=== PATIENT | male | born 1940 | race Asian ===

== ENCOUNTER 2018-12-03 02:00 | Inpatient (IN) | payer MEDICARE ==
[~2018-12-03] VITALS: Ht 165.1 cm; Wt 61.3 kg
[~2018-12-03 02:00] MED LIST: ALLO100T30 PO; AMLO10TA4 PO; CETI10TA18 PO; FINA5TAB4 PO; LATA2.5D3 EACHEYE; LOSA100T14 PO; MELO15TA6 PO; OMEP-110 PO; TIZA2CAP PO
[2018-12-03] MEDS ORDERED: PIPERACILLIN/TAZO/PMX 3.375GM 50 ML IVPB ONE (02:30)
[2018-12-03] MEDS ORDERED: VANCOMYCIN PER PHARMACY MC ONE (02:30)
[2018-12-03] MEDS ORDERED: SODIUM CHLORIDE FLUSH 10ML SYR IVF ONE (02:30)
[2018-12-03] MEDS ORDERED: PIPERACILLIN/TAZO/PMX 3.375GM 50 ML ONE (02:38)
[2018-12-03 02:46] LABS: BASOPHILS # (AUTO) 0.02 x10^3/uL (0-0.1); BASOPHILS % (AUTO) 0 % (0-1); EOSINOPHILS # (AUTO) 0.11 x10^3/uL (0-0.4); EOSINOPHILS % (AUTO) 1 % (1-7); LYMPHOCYTES # (AUTO) 0.81 x10^3/uL (1-3.4); LYMPHOCYTES % (AUTO) 8 % (22-44); MD NO; MEAN CORPUSCULAR HEMOGLOBIN 32.7 pg (27.5-34.5); MEAN CORPUSCULAR HGB CONC 33.5 g/dL (33.2-36.2); MEAN CORPUSCULAR VOLUME 97.5 fL (81-97); MEAN PLATELET VOLUME 7.6 fL (7.4-10.4); MONOCYTES # (AUTO) 1.05 x10^3/uL (0.2-0.8); MONOCYTES % (AUTO) 10 % (2-9); NEUTROPHILS # (AUTO) 8.88 x10^3/uL (1.8-6.8); NEUTROPHILS % (AUTO) 82 % (42-75); PLATELET COUNT 193 x10^3/uL (130-400); RED BLOOD COUNT 5.06 x10^6/uL (4.38-5.82); RED CELL DISTRIBUTION WIDTH 14.3 % (9.4-14.8)
--- NOTE | 2018-12-03 02:50 | NUR ---
PT RESTING IN BED. PT IN HOSPITAL GOWN. PT ABLE TO AMBULATE STEADILY TO THE BATHROOM AND PROVIDE A URINE SAMPLE. PT HAS 2 IVs, LABS AND BLOOD CULTURES DRAWN. PT ON CARDIAC AND VITALS MONITORS. ORDERED ABX STARTED. AT BEDSIDE. PT AWARE HE WILL BE ADMITTED. BILAT BEDRAILS UP.
[2018-12-03 02:52] LABS: MICROSCOPIC INDICATED
[2018-12-03 02:58] LABS: ALANINE AMINOTRANSFERASE 397 U/L (12-78); ALBUMIN 3.6 g/dL (3.4-5.0); ANION GAP 9 mmol/L (5-15); CALCIUM 8.6 mg/dL (8.5-10.1); CHLORIDE 106 mmol/L (98-107); CREATININE 1.18 mg/dL (0.7-1.3)
[2018-12-03 03:00] LABS: ALKALINE PHOSPHATASE 144 U/L (45-117); BILIRUBIN,TOTAL 7.7 mg/dL (0.2-1.0); TOTAL PROTEIN 7.5 g/dL (6.4-8.2)
[2018-12-03 03:03] LABS: CULTURE INDICATED? NO
--- NOTE | 2018-12-03 03:23 | NUR ---
REPORT TO KAILASH JOHNSON.
[2018-12-03] MEDS ORDERED: VANCOMYCIN 1,400 MG in SODIUM CHLORIDE 0.9% 250 ML IV ONE (03:30)
[2018-12-03] MEDS: SODIUM CHLORIDE 0.9% 1,000 ML IV SCH ×2 (03:33→15:20)
[2018-12-03 03:37] LABS: INTERNATIONAL NORMALIZED RATIO 1.15 (0.93-1.1)
[2018-12-03] MEDS ORDERED: ONDANSETRON 2MG/ML, 2ML IVPush PRN (04:00)
[2018-12-03 04:06] VITALS: BP 128/79
[2018-12-03 04:08] LABS: BILIRUBIN, DIRECT 5.7 mg/dL (0.1-0.2); BILIRUBIN,TOTAL 7.7 mg/dL (0.2-1.0)
[2018-12-03 04:29] VITALS: BP 128/79
[2018-12-03 06:23] LABS: SALICYLATE LEVEL < 1.7 mg/dL (2.8-20.0)
[2018-12-03 06:43] VITALS: BP 137/78
[2018-12-03] MEDS: PIPERACILLIN/TAZO/PMX 3.375GM 50 ML IV SCH ×3 (09:06→21:31)
[2018-12-03] MEDS ORDERED: PHARMACOKINETIC CONSULTATION MC ONE (11:00)
[2018-12-03] MEDS ORDERED: PHARMACOKINETIC MONITORING MC PRN (11:00)
[2018-12-03 13:32] LABS: HCT (SEDRATE) 48.2 % (39.2-51.8)
[2018-12-03 13:38] VITALS: BP 149/84
[2018-12-03 18:41] VITALS: BP 138/80
[2018-12-04 01:08] VITALS: BP 155/87
[2018-12-04] MEDS: SODIUM CHLORIDE 0.9% 1,000 ML IV SCH ×3 (01:50→21:26)
[2018-12-04] MEDS: PIPERACILLIN/TAZO/PMX 3.375GM 50 ML IV SCH ×4 (03:13→21:26)
[2018-12-04 05:41] LABS: BASOPHILS # (AUTO) 0.02 x10^3/uL (0-0.1); BASOPHILS % (AUTO) 0 % (0-1); EOSINOPHILS # (AUTO) 0.21 x10^3/uL (0-0.4); EOSINOPHILS % (AUTO) 3 % (1-7); LYMPHOCYTES # (AUTO) 0.94 x10^3/uL (1-3.4); LYMPHOCYTES % (AUTO) 13 % (22-44); MD NO; MEAN CORPUSCULAR HEMOGLOBIN 32.5 pg (27.5-34.5); MEAN CORPUSCULAR HGB CONC 33.6 g/dL (33.2-36.2); MEAN CORPUSCULAR VOLUME 96.8 fL (81-97); MEAN PLATELET VOLUME 7.5 fL (7.4-10.4); MONOCYTES # (AUTO) 0.61 x10^3/uL (0.2-0.8); MONOCYTES % (AUTO) 9 % (2-9); NEUTROPHILS # (AUTO) 5.29 x10^3/uL (1.8-6.8); NEUTROPHILS % (AUTO) 75 % (42-75); PLATELET COUNT 165 x10^3/uL (130-400); RED BLOOD COUNT 4.38 x10^6/uL (4.38-5.82); RED CELL DISTRIBUTION WIDTH 14.8 % (9.4-14.8)
[2018-12-04 05:48] LABS: ALANINE AMINOTRANSFERASE 213 U/L (12-78); ALBUMIN 2.6 g/dL (3.4-5.0); ANION GAP 8 mmol/L (5-15); CALCIUM 7.6 mg/dL (8.5-10.1); CHLORIDE 110 mmol/L (98-107); GAMMA GLUTAMYL TRANSPEPTIDASE 726 U/L (15-85)
[2018-12-04 05:51] LABS: ALKALINE PHOSPHATASE 117 U/L (45-117); BILIRUBIN,TOTAL 3.3 mg/dL (0.2-1.0); TOTAL PROTEIN 6.2 g/dL (6.4-8.2)
[2018-12-04 05:53] LABS: HEMOGLOBIN A1C 6.1 % (4.2-6.3)
[2018-12-04 07:58] VITALS: BP 144/87
[2018-12-04] MEDS: NEUTRA PHOS K 250 MG TABLET PO SCH ×3 (09:28→21:20)
[2018-12-04 12:50] VITALS: BP 139/83
[2018-12-04] MEDS ORDERED: POTASSIUM CHLORIDE 20 MEQ TAB.ER.PRT PO ONE (13:00)
[2018-12-04] MEDS ORDERED: VANCOMYCIN 1,400 MG in SODIUM CHLORIDE 0.9% 250 ML IV SCH (15:30)
[2018-12-04 19:38] VITALS: BP 164/78
[2018-12-05] VITALS (7 sets, daily range): BP systolic 130–173; BP diastolic 67–82
[2018-12-05] MEDS: PIPERACILLIN/TAZO/PMX 3.375GM 50 ML IV SCH ×4 (03:33→20:00)
[2018-12-05 04:44] LABS: BASOPHILS # (AUTO) 0.04 x10^3/uL (0-0.1); BASOPHILS % (AUTO) 1 % (0-1); EOSINOPHILS # (AUTO) 0.26 x10^3/uL (0-0.4); EOSINOPHILS % (AUTO) 5 % (1-7); LYMPHOCYTES # (AUTO) 1.18 x10^3/uL (1-3.4); LYMPHOCYTES % (AUTO) 20 % (22-44); MD NO; MEAN CORPUSCULAR HEMOGLOBIN 32.3 pg (27.5-34.5); MEAN CORPUSCULAR VOLUME 97.9 fL (81-97); MEAN PLATELET VOLUME 7.6 fL (7.4-10.4); MONOCYTES # (AUTO) 0.76 x10^3/uL (0.2-0.8); MONOCYTES % (AUTO) 13 % (2-9); NEUTROPHILS # (AUTO) 3.69 x10^3/uL (1.8-6.8); NEUTROPHILS % (AUTO) 62 % (42-75); PLATELET COUNT 176 x10^3/uL (130-400); RED BLOOD COUNT 4.38 x10^6/uL (4.38-5.82); RED CELL DISTRIBUTION WIDTH 14.8 % (9.4-14.8)
[2018-12-05 04:54] LABS: ALBUMIN 2.7 g/dL (3.4-5.0); ANION GAP 9 mmol/L (5-15); CALCIUM 7.5 mg/dL (8.5-10.1); CHLORIDE 111 mmol/L (98-107)
[2018-12-05 04:57] LABS: ALANINE AMINOTRANSFERASE 158 U/L (12-78); ALKALINE PHOSPHATASE 129 U/L (45-117); BILIRUBIN,TOTAL 2.2 mg/dL (0.2-1.0); CREATININE 0.96 mg/dL (0.7-1.3); TOTAL PROTEIN 6.3 g/dL (6.4-8.2)
[2018-12-05] MEDS ORDERED: POLYETHYLENE GLYCOL 17 GM PACKET PO PRN (08:00)
[2018-12-05] MEDS ORDERED: BISACODYL 10 MG SUPP PR PRN (08:00)
[2018-12-05] MEDS ORDERED: DOCUSATE 100 MG CAPSULE PO PRN (08:00)
[2018-12-05] MEDS ORDERED: ENALAPRILAT 1.25 MG/ML, 2ML IVPush PRN (08:00)
[2018-12-05] MEDS ORDERED: ACETAMINOPHEN 325 MG TABLET PO PRN (08:00)
[2018-12-05] MEDS ORDERED: hydrALAzine 20 MG/ML, 1ML IVPush PRN (08:00)
[2018-12-05] MEDS ORDERED: AMLODIPINE 5 MG TABLET PO SCH (09:00)
[2018-12-05] MEDS: SODIUM CHLORIDE 0.9% 1,000 ML IV SCH (09:14)
[2018-12-05] MEDS: FINASTERIDE 5 MG TABLET PO SCH (09:15)
[2018-12-05] MEDS: NEUTRA PHOS K 250 MG TABLET PO SCH ×3 (09:16→20:00)
[2018-12-05] MEDS: LOSARTAN 50MG TABLET PO SCH (09:16)
[2018-12-05 17:16] LABS: ANA SCREEN NEGATIVE (Negative)
[2018-12-05] MEDS ORDERED: CALCIUM CARBONATE 500 MG TAB.CHEW PO PRN (21:30)
[2018-12-06 01:43] VITALS: BP 154/88
[2018-12-06] MEDS: PIPERACILLIN/TAZO/PMX 3.375GM 50 ML IV SCH ×4 (02:38→20:06)
[2018-12-06 05:22] LABS: CHLORIDE 108 mmol/L (98-107)
[2018-12-06 05:58] LABS: ALBUMIN 2.8 g/dL (3.4-5.0); ANION GAP 11 mmol/L (5-15); CALCIUM 8.1 mg/dL (8.5-10.1)
[2018-12-06 06:02] LABS: ALANINE AMINOTRANSFERASE 228 U/L (12-78); ALKALINE PHOSPHATASE 239 U/L (45-117); BILIRUBIN,TOTAL 4.5 mg/dL (0.2-1.0); CREATININE 0.96 mg/dL (0.7-1.3); TOTAL PROTEIN 6.6 g/dL (6.4-8.2)
[2018-12-06 07:48] VITALS: BP 136/75
[2018-12-06] MEDS ORDERED: POTASSIUM CHLORIDE 20 MEQ TAB.ER.PRT PO ONE (08:00)
[2018-12-06] MEDS: FINASTERIDE 5 MG TABLET PO SCH (10:44)
[2018-12-06] MEDS: LOSARTAN 50MG TABLET PO SCH (10:45)
[2018-12-06] MEDS: NEUTRA PHOS K 250 MG TABLET PO SCH ×3 (10:45→20:06)
[2018-12-06] MEDS: AMLODIPINE 5 MG TABLET PO SCH (10:46)
[2018-12-06 12:10] VITALS: BP 111/68
[2018-12-06 19:36] VITALS: BP 125/71
[2018-12-07 02:06] VITALS: BP 146/77
[2018-12-07] MEDS: PIPERACILLIN/TAZO/PMX 3.375GM 50 ML IV SCH ×4 (02:38→20:38)
[2018-12-07 05:26] LABS: BASOPHILS # (AUTO) 0.05 x10^3/uL (0-0.1); BASOPHILS % (AUTO) 1 % (0-1); EOSINOPHILS # (AUTO) 0.37 x10^3/uL (0-0.4); EOSINOPHILS % (AUTO) 6 % (1-7); LYMPHOCYTES # (AUTO) 1.64 x10^3/uL (1-3.4); LYMPHOCYTES % (AUTO) 25 % (22-44); MD NO; MEAN CORPUSCULAR HEMOGLOBIN 32.2 pg (27.5-34.5); MEAN CORPUSCULAR HGB CONC 33.6 g/dL (33.2-36.2); MEAN CORPUSCULAR VOLUME 95.9 fL (81-97); MEAN PLATELET VOLUME 7.4 fL (7.4-10.4); MONOCYTES # (AUTO) 0.75 x10^3/uL (0.2-0.8); MONOCYTES % (AUTO) 12 % (2-9); NEUTROPHILS # (AUTO) 3.65 x10^3/uL (1.8-6.8); NEUTROPHILS % (AUTO) 57 % (42-75); PLATELET COUNT 197 x10^3/uL (130-400); RED BLOOD COUNT 4.42 x10^6/uL (4.38-5.82); RED CELL DISTRIBUTION WIDTH 14.7 % (9.4-14.8)
[2018-12-07 05:42] LABS: CHLORIDE 108 mmol/L (98-107)
[2018-12-07 05:54] LABS: ALANINE AMINOTRANSFERASE 286 U/L (12-78); ALBUMIN 2.7 g/dL (3.4-5.0); ALKALINE PHOSPHATASE 276 U/L (45-117); ANION GAP 9 mmol/L (5-15); CALCIUM 7.8 mg/dL (8.5-10.1); CREATININE 1.12 mg/dL (0.7-1.3); TOTAL PROTEIN 6.4 g/dL (6.4-8.2)
[2018-12-07 08:01] VITALS: BP 147/73
[2018-12-07] MEDS: NEUTRA PHOS K 250 MG TABLET PO SCH ×3 (09:36→20:37)
[2018-12-07] MEDS: FINASTERIDE 5 MG TABLET PO SCH (09:36)
[2018-12-07] MEDS: LOSARTAN 50MG TABLET PO SCH (09:36)
[2018-12-07] MEDS: AMLODIPINE 5 MG TABLET PO SCH (09:37)
[2018-12-07 13:49] VITALS: BP 142/67
[2018-12-07 19:42] VITALS: BP 166/76
[2018-12-08 02:02] VITALS: BP 156/79
[2018-12-08] MEDS: PIPERACILLIN/TAZO/PMX 3.375GM 50 ML IV SCH ×4 (02:59→20:53)
[2018-12-08 07:48] LABS: BASOPHILS # (AUTO) 0.01 x10^3/uL (0-0.1); BASOPHILS % (AUTO) 0 % (0-1); EOSINOPHILS # (AUTO) 0.31 x10^3/uL (0-0.4); EOSINOPHILS % (AUTO) 3 % (1-7); LYMPHOCYTES # (AUTO) 1.77 x10^3/uL (1-3.4); LYMPHOCYTES % (AUTO) 19 % (22-44); MD NO; MEAN CORPUSCULAR HEMOGLOBIN 32.3 pg (27.5-34.5); MEAN CORPUSCULAR HGB CONC 33.4 g/dL (33.2-36.2); MEAN CORPUSCULAR VOLUME 96.7 fL (81-97); MEAN PLATELET VOLUME 7.3 fL (7.4-10.4); MONOCYTES # (AUTO) 0.65 x10^3/uL (0.2-0.8); MONOCYTES % (AUTO) 7 % (2-9); NEUTROPHILS # (AUTO) 6.51 x10^3/uL (1.8-6.8); NEUTROPHILS % (AUTO) 70 % (42-75); PLATELET COUNT 236 x10^3/uL (130-400); RED BLOOD COUNT 4.77 x10^6/uL (4.38-5.82); RED CELL DISTRIBUTION WIDTH 15.9 % (9.4-14.8)
[2018-12-08 07:54] LABS: ALANINE AMINOTRANSFERASE 285 U/L (12-78); ALBUMIN 3.2 g/dL (3.4-5.0); ANION GAP 5 mmol/L (5-15); CALCIUM 8.4 mg/dL (8.5-10.1); CHLORIDE 108 mmol/L (98-107); CREATININE 1.07 mg/dL (0.7-1.3)
[2018-12-08 07:56] LABS: ALKALINE PHOSPHATASE 288 U/L (45-117); BILIRUBIN,TOTAL 3.4 mg/dL (0.2-1.0); TOTAL PROTEIN 7.3 g/dL (6.4-8.2)
[2018-12-08] MEDS: CHLORTHALIDONE 25 MG TABLET PO SCH (09:31)
[2018-12-08] MEDS: NEUTRA PHOS K 250 MG TABLET PO SCH ×3 (09:31→20:53)
[2018-12-08] MEDS: LOSARTAN 50MG TABLET PO SCH (09:32)
[2018-12-08 09:34] VITALS: BP 132/74
[2018-12-08] MEDS: FINASTERIDE 5 MG TABLET PO SCH (09:34)
[2018-12-08] MEDS: AMLODIPINE 5 MG TABLET PO SCH (09:34)
[2018-12-08 14:00] VITALS: BP_SYST 162; BP_SYST 172; BP_DIAS 79; BP_DIAS 81
[2018-12-08 16:11] VITALS: BP_SYST 162; BP_SYST 172; BP_DIAS 79; BP_DIAS 81
[2018-12-08 21:21] VITALS: BP 136/74
[2018-12-09 00:43] VITALS: BP 128/75
[2018-12-09] MEDS: PIPERACILLIN/TAZO/PMX 3.375GM 50 ML IV SCH ×2 (03:22→09:09)
[2018-12-09 06:45] LABS: BASOPHILS # (AUTO) 0.01 x10^3/uL (0-0.1); BASOPHILS % (AUTO) 0 % (0-1); EOSINOPHILS # (AUTO) 0.39 x10^3/uL (0-0.4); EOSINOPHILS % (AUTO) 5 % (1-7); LYMPHOCYTES % (AUTO) 25 % (22-44); MD NO; MEAN CORPUSCULAR HEMOGLOBIN 32.7 pg (27.5-34.5); MEAN CORPUSCULAR HGB CONC 33.9 g/dL (33.2-36.2); MEAN CORPUSCULAR VOLUME 96.7 fL (81-97); MEAN PLATELET VOLUME 7.6 fL (7.4-10.4); MONOCYTES # (AUTO) 0.55 x10^3/uL (0.2-0.8); MONOCYTES % (AUTO) 7 % (2-9); NEUTROPHILS # (AUTO) 5.12 x10^3/uL (1.8-6.8); NEUTROPHILS % (AUTO) 64 % (42-75); PLATELET COUNT 245 x10^3/uL (130-400); RED BLOOD COUNT 4.63 x10^6/uL (4.38-5.82); RED CELL DISTRIBUTION WIDTH 15.6 % (9.4-14.8)
[2018-12-09 06:53] LABS: ALANINE AMINOTRANSFERASE 283 U/L (12-78); ALBUMIN 2.9 g/dL (3.4-5.0); ANION GAP 8 mmol/L (5-15); CALCIUM 8.5 mg/dL (8.5-10.1); CHLORIDE 106 mmol/L (98-107); CREATININE 1.12 mg/dL (0.7-1.3)
[2018-12-09 06:55] LABS: ALKALINE PHOSPHATASE 313 U/L (45-117); BILIRUBIN,TOTAL 3.2 mg/dL (0.2-1.0); TOTAL PROTEIN 7.4 g/dL (6.4-8.2)
[2018-12-09 09:06] VITALS: BP 125/70
[2018-12-09] MEDS: CHLORTHALIDONE 25 MG TABLET PO SCH (09:09)
[2018-12-09] MEDS: FINASTERIDE 5 MG TABLET PO SCH (09:09)
[2018-12-09] MEDS: NEUTRA PHOS K 250 MG TABLET PO SCH ×3 (09:09→21:28)
[2018-12-09] MEDS: LOSARTAN 50MG TABLET PO SCH (09:10)
[2018-12-09] MEDS: AMLODIPINE 5 MG TABLET PO SCH (09:10)
[2018-12-09] MEDS: CEFTRIAXONE PMX 2GM/50ML 50 ML IV SCH (11:42)
[2018-12-09 11:56] VITALS: BP 106/58
[2018-12-09 14:19] VITALS: BP 125/72
[2018-12-09 18:44] VITALS: BP 125/69
[2018-12-10 02:18] VITALS: BP 105/56
[2018-12-10 05:19] LABS: BASOPHILS # (AUTO) 0.03 x10^3/uL (0-0.1); BASOPHILS % (AUTO) 0 % (0-1); EOSINOPHILS # (AUTO) 0.41 x10^3/uL (0-0.4); EOSINOPHILS % (AUTO) 5 % (1-7); LYMPHOCYTES # (AUTO) 2.39 x10^3/uL (1-3.4); LYMPHOCYTES % (AUTO) 27 % (22-44); MD NO; MEAN CORPUSCULAR HEMOGLOBIN 32.5 pg (27.5-34.5); MEAN CORPUSCULAR HGB CONC 33.1 g/dL (33.2-36.2); MEAN CORPUSCULAR VOLUME 98.2 fL (81-97); MEAN PLATELET VOLUME 7.5 fL (7.4-10.4); MONOCYTES # (AUTO) 0.66 x10^3/uL (0.2-0.8); MONOCYTES % (AUTO) 7 % (2-9); NEUTROPHILS # (AUTO) 5.51 x10^3/uL (1.8-6.8); NEUTROPHILS % (AUTO) 61 % (42-75); PLATELET COUNT 269 x10^3/uL (130-400); RED BLOOD COUNT 4.56 x10^6/uL (4.38-5.82); RED CELL DISTRIBUTION WIDTH 15.7 % (9.4-14.8)
[2018-12-10 05:26] LABS: ANION GAP 7 mmol/L (5-15); CHLORIDE 106 mmol/L (98-107)
[2018-12-10 05:30] LABS: ALANINE AMINOTRANSFERASE 275 U/L (12-78); ALKALINE PHOSPHATASE 298 U/L (45-117); BILIRUBIN,TOTAL 2.3 mg/dL (0.2-1.0); CREATININE 1.08 mg/dL (0.7-1.3); TOTAL PROTEIN 7.4 g/dL (6.4-8.2)
[2018-12-10 08:37] VITALS: BP 127/71
[2018-12-10] MEDS: NEUTRA PHOS K 250 MG TABLET PO SCH ×3 (11:16→22:04)
[2018-12-10] MEDS: CEFTRIAXONE PMX 2GM/50ML 50 ML IV SCH (11:16)
[2018-12-10] MEDS: CHLORTHALIDONE 25 MG TABLET PO SCH (11:16)
[2018-12-10] MEDS: AMLODIPINE 5 MG TABLET PO SCH (11:16)
[2018-12-10] MEDS: LOSARTAN 50MG TABLET PO SCH (11:16)
[2018-12-10 12:32] VITALS: BP 123/72
[2018-12-10] MEDS: FINASTERIDE 5 MG TABLET PO SCH (14:03)
[2018-12-10 19:06] VITALS: BP 120/73
[2018-12-11 01:12] VITALS: BP 112/64
[2018-12-11 05:33] LABS: BASOPHILS # (AUTO) 0.02 x10^3/uL (0-0.1); BASOPHILS % (AUTO) 0 % (0-1); EOSINOPHILS # (AUTO) 0.34 x10^3/uL (0-0.4); EOSINOPHILS % (AUTO) 3 % (1-7); LYMPHOCYTES # (AUTO) 2.15 x10^3/uL (1-3.4); LYMPHOCYTES % (AUTO) 18 % (22-44); MD NO; MEAN CORPUSCULAR HGB CONC 33.7 g/dL (33.2-36.2); MEAN CORPUSCULAR VOLUME 97.8 fL (81-97); MEAN PLATELET VOLUME 7.5 fL (7.4-10.4); MONOCYTES # (AUTO) 1.03 x10^3/uL (0.2-0.8); MONOCYTES % (AUTO) 9 % (2-9); NEUTROPHILS # (AUTO) 8.39 x10^3/uL (1.8-6.8); NEUTROPHILS % (AUTO) 70 % (42-75); PLATELET COUNT 319 x10^3/uL (130-400); RED BLOOD COUNT 4.52 x10^6/uL (4.38-5.82); RED CELL DISTRIBUTION WIDTH 15.5 % (9.4-14.8)
[2018-12-11 05:41] LABS: ALBUMIN 3.2 g/dL (3.4-5.0); ANION GAP 8 mmol/L (5-15); CALCIUM 8.8 mg/dL (8.5-10.1); CHLORIDE 103 mmol/L (98-107)
[2018-12-11 05:45] LABS: ALANINE AMINOTRANSFERASE 284 U/L (12-78); ALKALINE PHOSPHATASE 306 U/L (45-117); TOTAL PROTEIN 7.5 g/dL (6.4-8.2)
[2018-12-11] MEDS ORDERED: LIDOCAINE 1%, 10ML ONE (08:07)
[2018-12-11] MEDS ORDERED: FLUMAZENIL 0.1 MG/1 ML, 5ML ONE (08:15)
[2018-12-11] MEDS ORDERED: MIDAZOLAM 1 MG/ML, 5ML ONE (08:15)
[2018-12-11] MEDS ORDERED: NALOXONE 1 MG/ML, 2ML ONE (08:15)
[2018-12-11] MEDS ORDERED: FENTANYL PF 100 MCG/2ML ONE (08:15)
[2018-12-11] MEDS: AMLODIPINE 5 MG TABLET PO SCH (08:28)
[2018-12-11] MEDS: CHLORTHALIDONE 25 MG TABLET PO SCH (08:28)
[2018-12-11] MEDS: FINASTERIDE 5 MG TABLET PO SCH (08:28)
[2018-12-11] MEDS: CEFTRIAXONE PMX 2GM/50ML 50 ML IV SCH (08:28)
[2018-12-11] MEDS: LOSARTAN 50MG TABLET PO SCH (08:28)
[2018-12-11] MEDS: NEUTRA PHOS K 250 MG TABLET PO SCH ×3 (08:28→20:37)
[2018-12-11 09:41] VITALS: BP 106/68
[2018-12-11 14:52] VITALS: BP 119/67
[2018-12-11 18:59] VITALS: BP 121/61
[2018-12-12 01:08] VITALS: BP 137/75
[2018-12-12 05:35] LABS: BASOPHILS # (AUTO) 0.05 x10^3/uL (0-0.1); BASOPHILS % (AUTO) 1 % (0-1); EOSINOPHILS # (AUTO) 0.24 x10^3/uL (0-0.4); EOSINOPHILS % (AUTO) 3 % (1-7); LYMPHOCYTES # (AUTO) 2.09 x10^3/uL (1-3.4); LYMPHOCYTES % (AUTO) 22 % (22-44); MD NO; MEAN CORPUSCULAR HGB CONC 33.5 g/dL (33.2-36.2); MEAN CORPUSCULAR VOLUME 98.5 fL (81-97); MEAN PLATELET VOLUME 7.5 fL (7.4-10.4); MONOCYTES # (AUTO) 0.84 x10^3/uL (0.2-0.8); MONOCYTES % (AUTO) 9 % (2-9); NEUTROPHILS # (AUTO) 6.41 x10^3/uL (1.8-6.8); NEUTROPHILS % (AUTO) 67 % (42-75); PLATELET COUNT 312 x10^3/uL (130-400); RED BLOOD COUNT 4.56 x10^6/uL (4.38-5.82); RED CELL DISTRIBUTION WIDTH 14.9 % (9.4-14.8)
[2018-12-12 05:50] LABS: CHLORIDE 103 mmol/L (98-107)
[2018-12-12 06:11] LABS: ALANINE AMINOTRANSFERASE 287 U/L (12-78); ALBUMIN 3.2 g/dL (3.4-5.0); ALKALINE PHOSPHATASE 315 U/L (45-117); ANION GAP 9 mmol/L (5-15); BILIRUBIN,TOTAL 2.4 mg/dL (0.2-1.0); CALCIUM 8.9 mg/dL (8.5-10.1); CREATININE 1.08 mg/dL (0.7-1.3); TOTAL PROTEIN 7.7 g/dL (6.4-8.2)
[2018-12-12] MEDS ORDERED: CIPR500T87 PO (06:53)
[2018-12-12] MEDS: CHLORTHALIDONE 25 MG TABLET PO SCH (08:12)
[2018-12-12] MEDS: LOSARTAN 50MG TABLET PO SCH (08:12)
[2018-12-12] MEDS: FINASTERIDE 5 MG TABLET PO SCH ×2 (08:12→08:18)
[2018-12-12] MEDS: NEUTRA PHOS K 250 MG TABLET PO SCH (08:12)
[2018-12-12] MEDS: AMLODIPINE 5 MG TABLET PO SCH (08:12)
[2018-12-12] MEDS: CEFTRIAXONE PMX 2GM/50ML 50 ML IV SCH (08:18)
[2018-12-12 08:20] VITALS: BP 168/74
== END 2018-12-12 10:00 | disposition home or self-care (01) | DRG 871 ==
LOC: ED 02:16 → EDIP 02:53 → 3N 03:42 → DCLOUNGE 12-12 09:50
PROVIDERS: ADMIT Internal Medicine; ATTEND Family Medicine
PROC: 0FB13ZX Excision of Right Lobe Liver, Percutaneous Approach, Diagnostic (ICD-10-PCS; principal; 2018-12-11)
DX: A41.59 Other Gram-negative sepsis (principal); K72.00 Acute and subacute hepatic failure without coma; A03.9 Shigellosis, unspecified; B96.1 Klebsiella pneumoniae [K. pneumoniae] as the cause of diseases classified elsewhere; D72.1 Eosinophilia; E83.39 Other disorders of phosphorus metabolism; E87.6 Hypokalemia; I10 Essential (primary) hypertension; K76.0 Fatty (change of) liver, not elsewhere classified; N40.1 Benign prostatic hyperplasia with lower urinary tract symptoms; R73.03 Prediabetes
CPT/HCPCS: 36415; 47000; 71045; 74181; 76705; 77012; 80053; 80307; 81001; 82247; 82248; 82784; 82977; 83036; 83516; 83605; 83615; 83735; 84100; 84145; 84443; 85025; 85610; 85651; 85730; 86038; 86140; 86480; 86644; 86645; 86682; 86790; 87040; 87046; 87077; 87177; 87186; 87209; 87389; 87427; 88307; 88313; 99156; 99157; 99285; G0378; J0696; J2250; J2405; J2543; J3010; J3370; J0360; J2310; J7030; J7050

== ENCOUNTER 2019-03-09 01:05 | Emergency (ER) | payer MEDICARE ==
[~2019-03-09] VITALS: Ht 165.1 cm; Wt 69.1 kg
[~2019-03-09 01:05] MED LIST changes: +CIPR500T87 PO
[2019-03-09 01:35] LABS: BASOPHILS # (AUTO) 0.01 x10^3/uL (0-0.1); BASOPHILS % (AUTO) 0 % (0-1); EOSINOPHILS # (AUTO) 0.03 x10^3/uL (0-0.4); EOSINOPHILS % (AUTO) 0 % (1-7); LYMPHOCYTES # (AUTO) 0.73 x10^3/uL (1-3.4); LYMPHOCYTES % (AUTO) 6 % (22-44); MD NO; MEAN CORPUSCULAR HEMOGLOBIN 31.9 pg (27.5-34.5); MEAN CORPUSCULAR HGB CONC 33.2 g/dL (33.2-36.2); MEAN CORPUSCULAR VOLUME 96.1 fL (81-97); MONOCYTES # (AUTO) 0.19 x10^3/uL (0.2-0.8); MONOCYTES % (AUTO) 2 % (2-9); NEUTROPHILS # (AUTO) 10.95 x10^3/uL (1.8-6.8); NEUTROPHILS % (AUTO) 92 % (42-75); PLATELET COUNT 224 x10^3/uL (130-400); RED BLOOD COUNT 5.21 x10^6/uL (4.38-5.82); RED CELL DISTRIBUTION WIDTH 13.6 % (9.4-14.8)
[2019-03-09 01:47] LABS: ALANINE AMINOTRANSFERASE 29 U/L (12-78); ALBUMIN 3.7 g/dL (3.4-5.0); ANION GAP 5 mmol/L (5-15); CALCIUM 8.8 mg/dL (8.5-10.1); CHLORIDE 104 mmol/L (98-107); CREATININE 1.01 mg/dL (0.7-1.3)
[2019-03-09 01:49] LABS: ALKALINE PHOSPHATASE 79 U/L (45-117); BILIRUBIN,TOTAL 0.6 mg/dL (0.2-1.0); TOTAL PROTEIN 8.2 g/dL (6.4-8.2)
--- NOTE | 2019-03-09 02:39 | NUR ---
THIS IS A 78Y M THAT COMES FROM HOME FOR ABD PAIN STARTING LAST NIGHT AT DINNER. PT HAS HX OF GERD AND TAKES MEDICATION FOR THIS. PT REPORTS "SOME EPISODES OF VOMITING TONIGHT AFTER DINNER." BEFORE COMING TO THE ER, PT TOOK OMEPERAZOLE AND NOW STS HE FEELS BETTER. PT CONNECTED TO MONITORING, VSS, NADN, PIV STARTED.
--- NOTE | 2019-03-09 02:41 | NUR ---
PT TO CT
[2019-03-09 02:59] LABS: TROPONIN I < 0.015 ng/mL (0.000-0.045)
[2019-03-09] MEDS ORDERED: OMNIPAQUE 350 MG/ML, 100ML BOTTLE ONE (03:00)
[2019-03-09 04:26] VITALS: BP 115/68
== END 2019-03-09 04:30 | disposition home or self-care (01) ==
LOC: ED 04:00
DX: K80.20 Calculus of gallbladder without cholecystitis without obstruction (principal); A09 Infectious gastroenteritis and colitis, unspecified; I10 Essential (primary) hypertension
CPT/HCPCS: 36415; 74177; 80053; 83690; 84484; 85025; 93005; 99284; Q9967